=== PATIENT | female | born 1955 | race Caucasian/White ===

== ENCOUNTER 2024-01-17 20:55 | Emergency (ER) | payer OTHER, MEDICAID ==
[~2024-01-17] VITALS: Ht 154.9 cm; Wt 56.2 kg
[2024-01-17 21:14] VITALS: BP_SYST 126; PULSE 97; RESP 20; TEMP 97.4; O2SAT 98
[2024-01-18] MEDS ORDERED: TRAM50TA2 PO (00:28)
[2024-01-18 00:39] VITALS: BP_SYST 117; PULSE 77; RESP 24; TEMP 97.6; O2SAT 96
[2024-01-18] MEDS: MORPHINE 4 MG INJ. 4 MG/ML VIAL IM ONE (00:44)
== END 2024-01-18 00:39 | disposition home or self-care (01) ==
LOC: SED 20:55
DX: S42.292A Other displaced fracture of upper end of left humerus, initial encounter for closed fracture (principal); Z88.0 Allergy status to penicillin; Z88.1 Allergy status to other antibiotic agents; Z88.6 Allergy status to analgesic agent; W01.0XXA Fall on same level from slipping, tripping and stumbling without subsequent striking against object, initial encounter; Y93.89 Activity, other specified; Y92.89 Other specified places as the place of occurrence of the external cause; Y99.8 Other external cause status
CPT/HCPCS: 99283; 73060; 96374; J2270